=== PATIENT | male | born 1930 | race Caucasian/White ===

== ENCOUNTER 2017-09-09 07:44 | Inpatient (IN) | payer BC ==
[~2017-09-09] VITALS: Ht 182.9 cm; Wt 77.1 kg
[~2017-09-09 07:44] MED LIST: ALLOPURINOL 10100 M1 PO; AMARYL2 MG PO; ASPIR 8181 MG PO; ASPIRIN EC81 M1 PO; ATENOLOL-CHLOR1 EACH PO; ATORVASTATIN CA40 MG; CARVEDILOL3.125 MG PO; CENTRUM SILVER1 EAC2 PO; COMBIVENT INH; CRESTOR10 MG PO; DUONEB 2.5-0.5 M3 ML INH; ELIQUIS2.5 MG PO; FISH OIL 1,001000 M2 PO; ISOSORBIDE DINI30 MG PO; KLOR-CON 1010 MEQ PO; LASIX 20 MG TAB20 MG PO; LEVAQUIN 500 M500 M2 PO; LISINOPRIL5 MG PO; LUMIGAN2.5 M1 OP; MELATONIN3 MG PO; METFORMIN HCL500 MG PO; NITROSTAT0.4 MG SL; NOVOLOG100 UNIT/1 SUBQ; PANTOPRAZOLE SO40 M1 PO; PLAVIX 75 MG TA75 M1 PO; PRINIVIL5 MG PO; ST. JOHN'S WOR150 MG PO; VALIUM10 MG PO; XANAX 0.5 MG0.5 MG PO; ZOCOR 20 MG TAB20 M1 PO; ZYRTEC10 MG PO
[2017-09-09 07:50] VITALS: BP 116/69
[2017-09-09] MEDS ORDERED: AMARYL2 MG PO (07:53)
[2017-09-09] MEDS ORDERED: ELIQUIS2.5 MG PO (07:53)
[2017-09-09] MEDS ORDERED: LASIX 20 MG TAB20 MG PO (07:54)
[2017-09-09] MEDS ORDERED: ASPIR 8181 MG PO (07:54)
[2017-09-09 08:51] LABS: ABSOLUTE BASOPHILS 0.1 thou/uL (0.0-0.2); ABSOLUTE EOSINOPHILS 0.1 thou/uL (0.0-0.7); ABSOLUTE LYMPHOCYTES 1.4 thou/uL (0.8-5.3); ABSOLUTE MONOCYTES 0.5 thou/uL (0.0-1.2); ABSOLUTE NEUTROPHILS 2.9 thou/uL (1.6-8.1); EOSINOPHILS 2.6 %; HEMOGLOBIN 11.8 gm/dL (14.0-18.0); LYMPHOCYTES 28.6 %; MCH 24.8 pg (26.0-34.0); MCHC 30.2 g/dL (28.0-37.0); MCV 81.9 fL (80.0-100.0); MPV 9.3 fl. (7.2-11.1); NUCLEATED RBCS 0 /100WBC; PLATELET COUNT* 191 thou/uL (150-400); POLYS 57.8 %; RBC 4.77 mil/uL (4.50-6.00); RDW-CV 19.5 % (10.5-14.5)
[2017-09-09 09:06] LABS: URINE BILIRUBIN NEGATIVE (Negative); URINE BLOOD NEGATIVE (Negative); URINE CLARITY CLEAR; URINE COLOR YELLOW; URINE GLUCOSE-RANDOM NEGATIVE (Negative); URINE KETONES NEGATIVE (Negative); URINE LEUKOCYTES-REFLEX NEGATIVE (Negative); URINE NITRITE-REFLEX NEGATIVE (Negative); URINE PROTEIN NEGATIVE (Negative); URINE SPECIFIC GRAVITY 1.015 (1.005-1.030); URINE UROBILINOGEN 0.2 E.U./dl (0.2-1.0)
[2017-09-09 09:07] LABS: ALKALINE PHOSPHATASE 123 U/L (46-116); ANION GAP 10 mmol/L (7-16); BUN 55 mg/dL (7-18); CHLORIDE 105 mmol/L (98-107); CO2 24 mmol/L (21-32); GLUCOSE 193 mg/dL (70-99); INR 1.6; NT-PRO BRAIN NAT PEPTIDE 14646 pg/mL (<300); POTASSIUM 4.9 mmol/L (3.5-5.1); PROTIME 15.6 Seconds (9.20-11.50); SGOT 61 U/L (15-37); SGPT 41 U/L (30-65); SODIUM 139 mmol/L (136-145); TOTAL BILIRUBIN 0.8 mg/dL (<0.1-1.0); TOTAL PROTEIN 6.7 g/dL (6.4-8.2); TROPONIN-I LEVEL <0.06 ng/mL (<0.06)
[2017-09-09 09:11] LABS: CALCIUM 9.8 mg/dL (8.5-10.1); CREATININE 2.2 mg/dL (0.6-1.3)
--- NOTE | 2017-09-09 10:25 | EKG ---
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1930 Requested By: Jovany Johnson Order Number: [id number] MD: Ant Elmore Measurements Intervals [place] Rate: 98 P: PA: QRS: -51 QRSD: 112 T: 124 QT: 361 QTc: 461 Interpretive Statements Atrial fibrillation LAD, consider left anterior fascicular block Abnormal R-wave progression, late transition Nonspecific T abnormalities, lateral leads Compared to ECG 12/05/2015 18:36:09 T-wave abnormality now present Left ventricular hypertrophy no longer present ST (T wave) deviation no longer present Electronically Signed On 09-09-2017 10:25:06 CDT by Ant Elmore [email or web address] <ELECTRONICALLY SIGNED> By: Ant Elmore MD, [facility] 09/09/17 [phone] Ant Elmore MD, [facility] /EPI
--- NOTE | 2017-09-09 12:21 | NUR ---
REPORT GIVEN TO SENA GODINEZ. PT DENIES CHEST PAIN AT THIS TIME AFTER ONE DOSE OF NITRO SL. PT STILL HAS C/O SOA, RT NOTIFIED AND IS COMING TO PROVIDE BREATHING TREATMENT. PT AFIB ON TELE, AT BEDSIDE, PT TOLERATING 2L NC AT THIS TIME WITH O2 SATS IN UPPER 90'S. PT SKIN APPROPRIATE TO RACE WITH COLD EXTREMITIES AND BLUISH TINTING. PT HAD TO HAVE HAND WRAPPED IN WARM BLANKET TO GET GOOD READING ON O2 MONITOR. PT HAS URINE OUTPUT OF 450 THIS STAY AT THIS TIME. PT AMBULATED TO BATHROOM WITH WHEELCHAIR AND NURSE ASSISTANCE. REPORTS MULTIPLE FALLS AND ONE THAT LEFT A BRUISE ON RIGHT ARM AND OPENING ON THE UPPER LIP, PT THEN REPORTS PT THEN GOT COLD SORE ON THAT SPOT. WILL SEND PT TO FLOOR AFTER RESPIRATORY TREATMENT.
[2017-09-09 12:33] VITALS: BP 113/79
--- NOTE | 2017-09-09 15:15 | EKG ---
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1930 Requested By: Jovany Johnson Order Number: [id number] MD: Ant Emlore Measurements Intervals [place] Rate: 93 P: MT: QRS: -44 QRSD: 109 T: 87 QT: 415 QTc: 517 Interpretive Statements Atrial fibrillation Left axis deviation Abnormal R-wave progression, late transition Borderline T abnormalities, lateral leads Prolonged QT interval Baseline wander in lead(s) V1,V2,V3,V4,V5,V6 Compared to ECG 09/09/2017 08:00:54 Left-axis deviation now present Prolonged QT interval now present T-wave abnormality still present Electronically Signed On 09-09-2017 15:14:47 CDT by Ant Elmore [email or web address] <ELECTRONICALLY SIGNED> By: Ant Elmore MD, [facility] 09/09/17 1514 1154 1154 Ant Elmore MD, [facility] /EPI
[2017-09-09 16:01] VITALS: BP 121/89
--- NOTE | 2017-09-09 17:42 | NUR ---
ASSUMED CARE OF PATIENT ATER ADMISSION FROM THE ED AT 1300. ALERT AND ORIENTED X4. ADMISSION HISTORY AND ASSESSMENT COMPLETED AND CHARTED. VSS ON 2 LITERS 02. CARDIAC MONITORING STARTED AND PATIENT READS SINUS TACH. NO COMPLAINTS OF PAIN, NAUSEA OR SOA. PATIENT RESTED COMFORTABLYIN BED THIS AFTERNOON. REMAINS ALERT AND ORIENTED AND SINUS TACH ON THE MONITOR AT THIS TIME. AT BEDSIDE SINCE ADMISSION. PATIENT UP WITH SBA TO USE URINAL. CURRENTLY RESTING IN BED. HOURLY ROUNDS MAINTAINED, CALL LIHT WITHIN EACH. NURSING WILL CONTINUE TO MONITOR.
[2017-09-09 20:31] VITALS: BP 117/82
[2017-09-10] VITALS: BP 132/77
[2017-09-10 04:00] VITALS: BP 125/80
[2017-09-10 04:59] LABS: CALCIUM 9.1 mg/dL (8.5-10.1); CREATININE 2.2 mg/dL (0.6-1.3); MAGNESIUM 2.2 mg/dL (1.8-2.4); POTASSIUM 4.1 mmol/L (3.5-5.1)
--- NOTE | 2017-09-10 05:43 | NUR ---
PT IS ABLE TO COMMUNICATE HIS NEEDS TO STAFF EFFECTIVELY. HE HAS DENIED THE NEED FOR PAIN MEDICATION UP TO THIS TIME. PT CODE STATUS IS DNR. CARDIOLOGY FOLLOWING.
[2017-09-10 08:00] VITALS: BP 141/87
--- NOTE | 2017-09-10 10:03 | NUR ---
ASSESSMENT COMPLETED REFER TO COMPUTER CHARTING. VERMIN EXTERMINATOR TRACKING AFIB. PATIENT RESTING IN BED AND GETTING UP TO THE RECLINER. PATIENT REPORTING NO PAIN, NAUSEA OR INCREASED SHORTNESS OF AIR. BED IN LOW AND LOCKED POSITION. CALL LIGHT WITHIN REACH. FAMILY AT BEDSIDE. IV SALINE LOCKED. ON 2 LITERS O2 VIA NASAL CANNULA. WILL CONTINUE TO MONITOR THIS SHIFT.
[2017-09-10 12:31] VITALS: BP 122/77
[2017-09-10 15:52] VITALS: BP 122/86
[2017-09-10 20:00] VITALS: BP 103/74
[2017-09-11] VITALS: BP 126/73
--- NOTE | 2017-09-11 03:10 | NUR ---
ASSESSMENT: PT REMAIN ALERT AND ORIENT TIMES THREE, FORGETFUL ABOUT USING CALL LIGHT FOR ASSISTANCE. ENCOURAGED TO USE CALL BUTTON. UP WITH SBA ON SIDE OF BED. SCAB INTACT ON LIP/ LEFT ARM. AFIB PER MONITOR. HR 90-105. TOLERATING PO INTAKE. WAS AT THE BEDSIDE AT THE BEGINNING OF THE SHIFT. MRSA RESULTS PENDING. ENCOURAGED TO USE 02 AT ALL TIMES. DOES GET SOB WITH EXERTION. SLOW PROGRESS TOWARDS DC GOALS. WILL CONTINUE TO MONITOR.
[2017-09-11 04:00] VITALS: BP 133/76
[2017-09-11 05:09] LABS: CALCIUM 8.9 mg/dL (8.5-10.1); MAGNESIUM 2.2 mg/dL (1.8-2.4); POTASSIUM 3.9 mmol/L (3.5-5.1)
[2017-09-11 08:00] VITALS: BP 111/73
[2017-09-11] MEDS ORDERED: CARVEDILOL3.125 MG PO (11:20)
[2017-09-11] MEDS ORDERED: SYNTHROID50 MCG PO (11:20)
[2017-09-11 11:34] VITALS: BP 126/84
--- NOTE | 2017-09-16 13:33 | CON ---
[address] [address] CONSULTATION Name: RIANNA MCARTHUR Room: [address] IN M.R.#: [id number] Admission: 09/09/17 Attend Phys: Himanshu Smith MD Discharge: 09/11/17 Date of : 34 Report #: [id number] THIS REPORT FOR: //name// CC: Rolando Elmore DATE OF SERVICE: 09/09/2017 CHIEF COMPLAINT: Shortness of breath, leg swelling. HISTORY OF PRESENT ILLNESS: The patient is an 87-year-old man with ischemic cardiomyopathy who recently underwent a carotid endarterectomy at [facility] and developed significant fluid overload and weight gain, in particular, his lower extremity and scrotal region. He had been taking Lasix 40 mg over the last 48 hours without improvement. He presents without chest pain or pressure. He has underlying history of coronary artery disease. 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 He presents in atrial fibrillation, which is known to be persistent. He is followed by Dr. Skinner in our practice. PAST MEDICAL HISTORY: Significant for ischemic cardiomyopathy, EF in the 45% range. He has severe mitral insufficiency with a partial flail leaflet, multivessel coronary artery disease, status post remote coronary bypass graft surgery, which has been managed medically. He was not felt to be an operative candidate for revascularization and/or mitral valve repair. Apparently, he has persistent atrial fibrillation. He has peripheral vascular disease, which was treated initially because of nonhealing foot ulcers and then he had apparently a TIA and was found to have significant carotid vascular disease and underwent left-sided carotid endarterectomy. HOME MEDICATIONS: Include apixaban 2.5 mg p.o. b.i.d., , Lasix 20 mg daily, glimepiride 2 mg p.o. b.i.d. PAST MEDICAL HISTORY: As noted above. PAST SURGICAL HISTORY: Prior coronary bypass graft surgery, vascular surgery, cataract surgery. FAMILY HISTORY: Positive [place] [address] CONSULTATION Name: LYUBOVRIANNA C Room: [address]#: [id number] Admission: 09/09/17 Attend Phys: Himanshu Smith MD Discharge: 09/11/17 Date of : 34 Report #: [id number] SOCIAL HISTORY: He is a nonsmoker, does not drink. He is . REVIEW OF SYSTEMS: GENERAL: Positive weakness, positive fatigue. No fevers or chills. PULMONARY: Positive shortness of breath. RESPIRATORY: No cough. Positive orthopnea, positive PND, positive edema. CARDIOVASCULAR: No chest pain, positive dyspnea with exertion. No PND. Positive orthopnea. NEUROLOGIC: Positive confusion. Denies seizures. SKIN: He has significant bilateral lower extremity swelling, open ulcer on his left side. He is followed by Vascular Surgery with wound care subsequent to this. PHYSICAL EXAMINATION: VITAL SIGNS: Blood pressure is 113/79, pulse is 98 in atrial fibrillation, respiratory rate 21, O2 sats 100% on 2 liters nasal cannula. GENERAL: Cachectic elderly male. He is resting comfortably though and is answering questions appropriately. HEENT: There is no evidence of facial asymmetry. NECK: Supple. No jugular venous distention. There is a clean, well-healed scar in his left neck. CARDIOVASCULAR: Irregular. There is a systolic murmur. There is a gallop. LUNGS: Diminished breath sounds bilaterally. ABDOMEN: Soft, nontender, nondistended. EXTREMITIES: Show anasarca. NEUROLOGIC: There are no focal deficits. LABORATORY DATA: Electrocardiogram demonstrates atrial fibrillation, poor R-wave progression, left anterior fascicular block. Chest x-ray shows the right lower lobe pneumonia versus small right-sided pleural effusion. Chest CT shows cardiomegaly and mild pulmonary venous congestion. Hemoglobin is 11.8, white blood count is 5, platelet count is 191,000. Sodium is 139, potassium 4.9, chloride is 105, CO2 is 24, BUN 55, creatinine is 2.2, GFR is 29. Glucose is 195. BNP is 14,646. IMPRESSION: 1. Acute systolic congestive heart failure. I will continue with Lasix via aggressive diuresis for volume overload. 2. Coronary artery disease. He reports no angina. We will continue with conservative medical treatment approach. 3. Status post coronary artery bypass graft. 4. Status post carotid endarterectomy, left-sided. His wound appears well healed. 5. Chronic foot ulcer, left foot. Continue with routine dressing care. [address] [place] [address] CONSULTATION Name: RIANNA MCARTHUR Room: [address] IN [facility]#: [id number] Admission: 09/09/17 Attend Phys: Himanshu Smith MD Discharge: 09/11/17 Date of : 34 Report #: [id number] 6. Atrial fibrillation. This is rate controlled. We will continue with low dose Eliquis. 7. Mitral regurgitation as noted above. This is in the severe range. admitted for mitral clip if his congestive heart failure is not otherwise being able to be managed with medical therapy. <ELECTRONICALLY SIGNED> By: Ant Elmore MD, [facility] 09/16/17 1333 1440 [id number] Elmore MD, [facility] /nt
== END 2017-09-11 12:30 | disposition home or self-care (01) | DRG 291 ==
LOC: M.ERS 07:44 → M.2W 09:45 → M.TBA-ER 09:45 → M.2W 12:48
PROVIDERS: Emergency Medicine Emergency Medical Services; ADMIT Internal Medicine
DX: I50.43 Acute on chronic combined systolic (congestive) and diastolic (congestive) heart failure (principal); J96.01 Acute respiratory failure with hypoxia; I48.1 Persistent atrial fibrillation; I25.5 Ischemic cardiomyopathy; E11.51 Type 2 diabetes mellitus with diabetic peripheral angiopathy without gangrene; I27.20 Pulmonary hypertension, unspecified; N18.3 Chronic kidney disease, stage 3 (moderate); E11.22 Type 2 diabetes mellitus with diabetic chronic kidney disease; E11.621 Type 2 diabetes mellitus with foot ulcer; E03.9 Hypothyroidism, unspecified; I34.0 Nonrheumatic mitral (valve) insufficiency; L97.529 Non-pressure chronic ulcer of other part of left foot with unspecified severity; I25.10 Atherosclerotic heart disease of native coronary artery without angina pectoris; Z95.1 Presence of aortocoronary bypass graft; Z95.5 Presence of coronary angioplasty implant and graft; Z79.01 Long term (current) use of anticoagulants; Z79.82 Long term (current) use of aspirin; Z79.899 Other long term (current) drug therapy; Z82.49 Family history of ischemic heart disease and other diseases of the circulatory system